=== PATIENT | male | born 1985 | race Two or more races ===

== ENCOUNTER 2024-05-06 06:25 | Day surgery (SDC) | payer MEDICAID, SELFPAY ==
--- NOTE | 2024-04-30 08:30 | EKG_ITS ---
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
[2024-04-30 10:25] VITALS: BMI 37.1
[2024-04-30 12:08] LABS: Basophils # (Auto) 0.1 Thou/mm3 (0.0-0.2); Basophils % (Auto) 1 % (0-2.5); Eosinophils # (Auto) 0.2 Thou/mm3 (0.0-0.5); Eosinophils % (Auto) 2 % (0-10); Hematocrit 45.1 % (41.0-53.0); Hemoglobin 14.8 g/dL (13.5-16.0); Immature Granulocytes % (Auto) 2 % (0-0); Immature Granulocytes Auto 0.14 Thou/mm3 (0.00-0.00); Lymphocytes # (Auto) 2.6 Thou/mm3 (1.0-4.8); Lymphocytes % (Auto) 31 % (10-50); Mean Corpuscular HGB Conc 32.8 g/dl (31.0-37.0); Mean Corpuscular Hemoglobin 31.5 pg (25.0-35.0); Mean Corpuscular Volume 96 fL (80-100); Monocytes % (Auto) 12 % (0-12); Neutrophils # (Auto) 4.4 Thou/mm3 (1.8-7.7); Neutrophils % (Auto) 53 % (37-80); Nucleated Red Blood Cell % 0 /100 WBC (0); Platelet Count 300 Thou/mm3 (140-440); RDW Standard Deviation 46.1 fL (35.1-43.9); White Blood Count 8.4 Thou/mm3 (3.8-10.6)
[2024-04-30 12:30] LABS: Alanine Aminotransferase 98 U/L (10-49); Albumin, Serum 4.7 gm/dL (3.5-5.0); Albumin/Globulin Ratio 1.5 (1.2-2.2); Alkaline Phosphatase 99 U/L (46-116); Anion Gap 9 (7-16); Aspartate Amino Transferase 66 U/L (0-34); BUN/Creatinine Ratio 8 Ratio (12-20); Bilirubin,Total 0.3 mg/dL (0.3-1.2); Blood Urea Nitrogen 6 mg/dL (9-23); Calcium 9.6 mg/dL (8.3-10.6); Calcium (Corrected) 9.6 mg/dL (8.5-10.1); Carbon Dioxide 26.1 mMol/L (20.0-31.0); Chloride 105 mMol/L (98-107); Creatinine (Component) 0.8 mg/dL (0.6-1.3); Globulin 3.2 gm/dL (2.3-3.5); Glucose 118 mg/dL (74-106); Osmolality,Calculated 278 (275-295); Sodium 140 mMol/L (136-145); Total Protein 7.9 gm/dL (5.7-8.2); eGFR > 60 See Note
[2024-05-06] VITALS (8 sets, daily range): BP systolic 96–130; BP diastolic 64–91; PULSE 79–91; RESP 12–20; TEMP 36.2–36.4; O2SAT 92–98; BMI 36.7
[2024-05-06] MEDS: RINGERS LACTATED 1000 ML 1,000 ML 20 ML IV (07:07)
--- NOTE | 2024-05-06 09:17 | SUR.PHASEI ---
0917: Pt. AAOX4,vitals stable, breathing unlabored, no complaint of pain or nausea, dressing to umbillicus CDI, no active bleed noted, report received from MD Marinelli and Teagan GALARZA.
--- NOTE | 2024-05-06 09:21 | PD.SUROPNT ---
Date of Procedure 05/06/24 Pre Op Diagnosis Incarcerated umbilical hernia Post Op Diagnosis Incarcerated umbilical hernia Procedure Primary repair of incarcerated umbilical hernia Findings An approximately 8 mm umbilical hernia defect with incarcerated preperitoneal fat Procedure Description Patient brought into the operating room in supine position. After administration of general endotracheal anesthesia, patient's abdomen prepped and draped in standard surgical manner. After administration of local anesthesia 3 cm semicircular incision was made below the umbilicus and dissection was deepened into soft tissue. The umbilicus was detached from anterior abdominal fascia. The hernia sac was identified and circumferentially dissected off surrounding tissue. The hernia sac was excised, the contents were preperitoneal fat that were incarcerated. The hernia sac along with incarcerated preperitoneal fat were excised. The hernia defect was primarily closed with interrupted sutures using 0 Prolene. Umbilicus was reattached into anterior abdominal fascia. Hemostasis was adequate and satisfactory. Soft tissue reapproximated with interrupted sutures using 2-0 Vicryl and the incision was closed with 4-0 Monocryl in subcuticular fashion. Dermabond applied. Patient tolerated the procedure well. He was extubated, breathing spontaneously and without difficulty and was transferred to postanesthesia care in stable condition. Instruments, needles and sponge counts were reported to be correct x 2. Anesthesia GETA and local Pathology / specimen None Estimated Blood Loss 2 Condition Stable Disposition PACU Surgeon Koffi Hou MD Surgical Staff Operation Date: 05/06/24 09:00 Case Staff Anesthesiologist: Guanakito Marinelli RN First Assistant: Marion Patel
[2024-05-06] MEDS: fentaNYL CIT INJ 50 mCg/ML AMP 2ML IVP ×2 (09:43→09:58)
[2024-05-06] MEDS: ACETAMINOPHEN IVPB 1,000 MG/100 ML VIAL 250 MG IV (09:44)
--- NOTE | 2024-05-06 10:19 | SUR.PHASEII ---
1020: Pt. AAOx4, vitals stable, breathing unlabored, no complaint of pain or nausea, dressing to ABD CDI, no active bleed noted, ABD Binder in place, pt. tolerated sips of water well, pt. ambulated to wheelchair with steady gait and no assist, no complications. Gave discharge instructions to the pt. and his using diplomatic interpreter/translator both verbalized understanding and had no further questions. Pt. currently waiting for ride home, IV DC'D. Refreshments provided and pt. is close to nurses station as him and his waits for their ride.
--- NOTE | 2024-05-06 10:30 | SUR.PHASEII ---
1030: Pt. DC'D. Pt. has no complaint of pain or nausea. Pt. left with all personal belongings.
== END 2024-05-06 10:30 | disposition home or self-care (01) ==
PROVIDERS: Anesthesiology; PCP Licensed Vocational Nurse; Referring Provider Surgery; Visit Provider Surgery
PROC: (CPT 49591; principal; 2024-05-06 08:45)
DX: K42.0 Umbilical hernia with obstruction, without gangrene (principal); Z01.810 Encounter for preprocedural cardiovascular examination
CPT/HCPCS: 49591; 36415; 80048; 80053; 85025; 93005; A4217; A4649; J0131; J0690; J1100; J1885; J2250; J2405; J2704; J3010; J3490; J7120